=== PATIENT | female | born 1945 | race Caucasian/White ===

== ENCOUNTER → 2017-03-14 | Outpatient (CLI) | payer MEDICARE ==
[~2017-03-14] MED LIST: ASPIRIN 32325 MG/TAB PO; CEPHALEXIN500 M1 PO; COREG 6.256.25 MG/TA PO; FLUOXETINE20 MG PO; FUROSEMIDE20 MG PO; LISINOPRIL; METFORMIN500 MG PO; PRAVASTATIN SOD40 MG PO; PRINZIDE 12.5 M1 TA1 PO; VESICARE5 MG PO; VITAMIN D50000 I1 PO
== END ==
LOC: MC.RAD 11:39
DX: Z12.31 Encounter for screening mammogram for malignant neoplasm of breast (principal)

== ENCOUNTER 2019-01-25 11:42 | Emergency (ER) | payer MEDICARE ==
[~2019-01-25] VITALS: Ht 167.6 cm; Wt 113.6 kg
[2019-01-25 11:52] VITALS: TEMP 97.4
[2019-01-25] MEDS ORDERED: NOVOLOG FLEX100 U/ML SQ (12:09)
[2019-01-25] MEDS ORDERED: COUMADIN 2MG2 MG/TAB PO (12:10)
[2019-01-25 13:00] VITALS: BP 111/68; PULSE 77
== END 2019-01-25 13:02 | disposition home or self-care (01) ==
LOC: COL.ER 11:42
DX: R04.0 Epistaxis (principal); Z79.82 Long term (current) use of aspirin

== ENCOUNTER 2019-09-08 11:09 | Inpatient (IN) | payer MEDICARE ==
[~2019-09-08] VITALS: Ht 167.6 cm; Wt 125.0 kg
[2019-09-08] VITALS (149 sets, daily range): BP systolic 85–137; BP diastolic 30–68; PULSE 69–82; TEMP 97–98.6; O2SAT 90–100
[~2019-09-08 11:09] MED LIST changes: +COUMADIN 2MG2 MG/TAB PO; +NOVOLOG FLEX100 U/ML SQ
[2019-09-08] MEDS ORDERED: ASPIRIN 81M81 MG/TA2 PO (11:54)
[2019-09-08] MEDS ORDERED: JANUVIA50 MG PO (11:57)
[2019-09-08 11:58] LABS: MEAN CELL VOLUME 86 fl (80.0-100.0); MEAN CORPUSCULAR HGB CONC 32 g/dl (33.0-37.0); MEAN PLATELET VOLUME 11.4 fl (7.4-10.4); PLATELET COUNT 280 K/mm3 (130-400); RED BLOOD COUNT 2.52 M/mm3 (4.10-5.30); REDCELL DISTRIBUTION WIDTH-CV 14.8 % (11.5-14.5)
[2019-09-08 12:00] LABS: HEMATOCRIT 21.7 % (37.0-47.0); HEMOGLOBIN 6.9 g/dl (12.5-16.0); MEAN CORPUSCULAR HEMOGLOBIN 27 pg (27.0-31.0)
[2019-09-08 12:46] LABS: INR 12.5 (0.8-3.0); PROTHROMBIN TIME 158.1 SECONDS (9.7-12.8)
[2019-09-08 12:53] LABS: ALBUMIN 3.1 gm/dL (3.5-5.0); BILIRUBIN,TOTAL 0.4 mg/dL (0.0-1.0); CALCIUM 8.3 mg/dL (8.4-10.2); CREATININE, serum 1.33 (0.52-1.25); POTASSIUM 4.8 mmol/L (3.4-5.0); TOTAL PROTEIN 5.6 gm/dL (6.4-8.2)
[2019-09-08 14:06] LABS: BAND 7 % (0-10); LYMPHOCYTE 13 % (20.0-51.0); NEUTROPHILS 77 % (42.0-75.2); NUCLEATED RED BLOOD CELL 1 (0-6); PLATELET ESTIMATE NORMAL (NORMAL)
[2019-09-08 14:26] LABS: INR 1.6 (0.8-3.0); PROTHROMBIN TIME 19.1 SECONDS (9.7-12.8)
--- NOTE | 2019-09-08 14:26 | NUR ---
Pt admitted to ICU bed 3 at this time from ED. Pt arrived via stretcher and was placed on aerographer upon arrival. Vitals stable with Levophed gtt infusing at 0.1 mcg/kg/min. Pt denies pain or any other discomforts. Dr. Cunha notified of Pt admission and will see Pt.
[2019-09-08] MEDS ORDERED: LANTUS100 U/ML SQ (15:03)
--- NOTE | 2019-09-08 17:36 | NUR ---
Admission assessment complete at this time. Plan of care reviewed at bedside with patient et family. Additional time taken to address any other needs or concerns. Vitals stable at this time while on Levophed gtt. Pt denies pain or any other discomforts. Currently finishing the infusion of the second unit of PRBCs and will recheck a H&H one hour after finish. Bed in low position, call light within reach, will continue to monitor.
--- NOTE | 2019-09-08 19:38 | NUR ---
Bedside report given to OSCAR Escudero.
--- NOTE | 2019-09-08 20:00 | NUR ---
Received report from OSCAR Escudero. Care resumed at this time.
[2019-09-08 20:01] LABS: HEMATOCRIT 26.3 % (37.0-47.0); HEMOGLOBIN 8.7 g/dl (12.5-16.0)
[2019-09-09] VITALS (775 sets, daily range): BP systolic 89–152; BP diastolic 34–76; PULSE 66–84; TEMP 97–98.8; O2SAT 92–98
--- NOTE | 2019-09-09 | NUR ---
Patient's lateral RAC peripheral line discontinued due to patient's complaint of tenderness at the site. Levophed was infusing at the time. Levophed was stopped upon patient's complaint and site assessed. Blood return was present and line flushed easily without indication of infiltration. Site was previously bruised from insertion attempt, however, the skin was slightly edematous at the site. Levophed switched to medial RAC peripheral line. Will continue to monitor.
--- NOTE | 2019-09-09 00:10 | NUR ---
Patient continues on Levophed drip to maintain MAP above 65. Shara notified that Levophed was previously ordered to DC after infusing one bag; received order to continue drip.
--- NOTE | 2019-09-09 07:34 | NUR ---
Report given to OSCAR Ramos.
--- NOTE | 2019-09-09 07:34 | NUR ---
Shift assessment complete at this time. Plan of care reviewed at bedside with patient. Additional time taken to address any other needs or concerns. Vitals stable at this time on Levophed gtt. Pt denies pain or any other discomfort at this time. Bed in low et locked position, call light within reach. Will continue to monitor.
[2019-09-09 07:56] LABS: MEAN CELL VOLUME 87 fl (80.0-100.0); MEAN CORPUSCULAR HGB CONC 32 g/dl (33.0-37.0); MEAN PLATELET VOLUME 10.9 fl (7.4-10.4); PLATELET COUNT 279 K/mm3 (130-400); REDCELL DISTRIBUTION WIDTH-CV 15.3 % (11.5-14.5)
[2019-09-09 08:14] LABS: CALCIUM 7.9 mg/dL (8.4-10.2); CREATININE, serum 1.23 (0.52-1.25); POTASSIUM 4.3 mmol/L (3.4-5.0)
[2019-09-09 08:42] LABS: HEMATOCRIT 25.1 % (37.0-47.0); HEMOGLOBIN 8.1 g/dl (12.5-16.0); MEAN CORPUSCULAR HEMOGLOBIN 28 pg (27.0-31.0)
[2019-09-09 11:34] LABS: BAND 5 % (0-10); EOSINOPHIL 3 % (0-4); LYMPHOCYTE 9 % (20.0-51.0); NEUTROPHILS 78 % (42.0-75.2); PLATELET ESTIMATE NORMAL (NORMAL)
--- NOTE | 2019-09-09 12:00 | NUR ---
Shift reassessment complete at this time. No changes from previous assessment noted. Vitals stable at this time while on Levophed gtt. Pt denies pain or any other discomfort. Bed in low position, call light within reach. Will continue to monitor.
--- NOTE | 2019-09-09 13:20 | NUR ---
Plan: To return home with son Gregory Sierra as her care [phone]. Patient also wanted to list daughter in law Rafia Sierra (and son) as her EMr contact . PT does not currently have a DPOA. Patient resides in [place] and lives alone. Assess: SW met with patient with son at her bedside. Patient gave permission to discuss information in front of son. Pt reports that she does not use any DME's at home. Patient reports that her PCP is Dr Lowe,with an appt coming up on 26 September. PAtient reproted that she gets her medications from [facility] with no complications. Patient expressed interest in [facility], and was provided with Medicare sheet. Son asked about medicare coverage benefits for adult diapers. Action: No additional concerns identified. Patient was educated on community resources and supports. Action
[2019-09-09 15:53] LABS: HEMATOCRIT 22.3 % (37.0-47.0); HEMOGLOBIN 7.1 g/dl (12.5-16.0)
--- NOTE | 2019-09-09 19:05 | NUR ---
RECEIVED REPORT FROM OSCAR HERRERA. PT SITTING UP IN BED WATCHING TV. CALL LIGHT WITHIN REACH. DENIES ANY NEEDS. PT ON RA. LEVOPHED AT 0.02MCG/KG/MIN, MAP 63, WILL COTNINUE TO MONITOR. PRBC INFUSING AT 150 ML/HR. VSS.
--- NOTE | 2019-09-09 19:19 | NUR ---
Bedside report given to OSCAR Escudero.
--- NOTE | 2019-09-09 19:21 | NUR ---
Bedside report given to OSCAR Feng.
[2019-09-09 23:09] LABS: HEMATOCRIT 23.3 % (37.0-47.0); HEMOGLOBIN 7.6 g/dl (12.5-16.0)
--- NOTE | 2019-09-09 23:40 | NUR ---
NOTIFIED RAE MORSE ABOUT HGB 7.6 AND LEVOPHED CURRENT RATE, NO NEW ORDERS. WILL CONTINUE LEVOPHED TO KEEP MAP > 65 AND ASSESS FOR POSSIBLE DC. ALL OTHER VSS. PT SLEEPING AT THIS TIME. CALL LIGHT WITHIN REACH.
[2019-09-10] VITALS (293 sets, daily range): BP systolic 11–133; BP diastolic 46–76; PULSE 61–93; TEMP 97.4–98.4; O2SAT 90–99
--- NOTE | 2019-09-10 00:17 | NUR ---
LEVOPHED GTT OFF AT THIS TIME MAP 82.
[2019-09-10 08:22] LABS: MEAN CELL VOLUME 89 fl (80.0-100.0); MEAN CORPUSCULAR HGB CONC 31 g/dl (33.0-37.0); MEAN PLATELET VOLUME 10.8 fl (7.4-10.4); PLATELET COUNT 219 K/mm3 (130-400); RED BLOOD COUNT 3.13 M/mm3 (4.10-5.30); REDCELL DISTRIBUTION WIDTH-CV 15.7 % (11.5-14.5)
[2019-09-10 08:24] LABS: HEMATOCRIT 27.7 % (37.0-47.0); HEMOGLOBIN 8.7 g/dl (12.5-16.0); MEAN CORPUSCULAR HEMOGLOBIN 28 pg (27.0-31.0)
[2019-09-10 08:29] LABS: CALCIUM 8.5 mg/dL (8.4-10.2); CREATININE, serum 1.1 (0.52-1.25); POTASSIUM 4.3 mmol/L (3.4-5.0)
[2019-09-10 10:08] LABS: ANISOCYTOSIS 1+; EOSINOPHIL 1 % (0-4); HYPOCHROMIA 1+; LYMPHOCYTE 14 % (20.0-51.0); METAMYELOCYTE 1 % (0-0); MYELOCYTE 3 % (0-0); NEUTROPHILS 79 % (42.0-75.2); NUCLEATED RED BLOOD CELL 2 (0-6); PLATELET ESTIMATE NORMAL (NORMAL)
--- NOTE | 2019-09-10 11:16 | NUR ---
BARREL AND RECEIVER ALIGNER student attended clinical rounds with the team. The patient is to move up to medical floor this day.
--- NOTE | 2019-09-10 15:00 | NUR ---
PATIENT ARRIVED TO ROOM 348 FROM VIA WHEELCHAIR. PATIENT SETTELED INTO ROOM.
--- NOTE | 2019-09-10 15:30 | NUR ---
SEE PATIENTS SHIFT ASSESSMENT.
--- NOTE | 2019-09-10 19:20 | NUR ---
BEDSIDE SHIFT REPORT GIVEN TO OSCAR DEVLIN.
--- NOTE | 2019-09-10 22:29 | NUR ---
Pt doing very well. Alert and oriented with VSS. PM meds given. Denies needs at this time. Call light within reach, will continue to monitor
[2019-09-11] VITALS: BP 121/58; PULSE 87; TEMP 98.2
--- NOTE | 2019-09-11 03:49 | NUR ---
Pt doing well. Resting in bed. No complaints at this time. Call light within reach, will continue to monitor
[2019-09-11 04:00] VITALS: BP 127/54; PULSE 79; TEMP 98.1
[2019-09-11 07:44] VITALS: BP 119/46; PULSE 74; TEMP 98.2
--- NOTE | 2019-09-11 08:00 | NUR ---
PATIENT IS SITTING UP AT THE EDGE OF THE BED WITH HER BREAKFAST TRAY THIS MORNING. PATIENT IS A&OX4. IRREGULAR HEART RHYTHM WITH REGULAR RATE NOTED, VSS. TELE IN PLACE. PATIENT STATES THAT SHE FEELS SOB, BUT NO MORE THAN HER NORMAL. BOWEL SOUNDS ACTIVE ALL FOUR QUADRANTS. PATIENT TOLERATING DIET WITHOUT ANY COMPLAINTS OF N/V. POSITIVE PEDAL PULSES EQUAL BILATERALLY. 1+ PITTING- EDEMA TO BLE. PATIENT DENIES ANY PAIN THIS MORNING. CALL LIGHT WITHIN REACH. NO OTHER NEEDS AT THIS TIME.
[2019-09-11 08:26] LABS: MEAN CELL VOLUME 90 fl (80.0-100.0); MEAN CORPUSCULAR HGB CONC 31 g/dl (33.0-37.0); MEAN PLATELET VOLUME 10.8 fl (7.4-10.4); PLATELET COUNT 234 K/mm3 (130-400); RED BLOOD COUNT 2.92 M/mm3 (4.10-5.30); REDCELL DISTRIBUTION WIDTH-CV 16.7 % (11.5-14.5)
[2019-09-11 08:31] LABS: CALCIUM 8.1 mg/dL (8.4-10.2); CREATININE, serum 1.19 (0.52-1.25); POTASSIUM 4.7 mmol/L (3.4-5.0)
[2019-09-11 08:33] LABS: HEMATOCRIT 26.4 % (37.0-47.0); HEMOGLOBIN 8.3 g/dl (12.5-16.0); MEAN CORPUSCULAR HEMOGLOBIN 28 pg (27.0-31.0)
[2019-09-11 09:21] LABS: BAND 3 % (0-10); BASOPHIL 1 % (0-2); EOSINOPHIL 5 % (0-4); LYMPHOCYTE 17 % (20.0-51.0); METAMYELOCYTE 2 % (0-0); NEUTROPHILS 68 % (42.0-75.2); PLATELET ESTIMATE NORMAL (NORMAL)
[2019-09-11 11:23] VITALS: BP 110/44; PULSE 65; TEMP 98.7
[2019-09-11 12:38] LABS: HEMATOCRIT 26.5 % (37.0-47.0); HEMOGLOBIN 8.3 g/dl (12.5-16.0)
[2019-09-11] MEDS ORDERED: PROTONIX 40MG T40 MG PO (14:08)
--- NOTE | 2019-09-11 15:10 | NUR ---
The patient is to discharge to her son's (Mg) home today, 09/11. SW presented and explained the IM form to the patient. The patient verbalized understanding, signed, and she was provided a copy. No additional needs at this time.
--- NOTE | 2019-09-11 16:30 | NUR ---
PATIENTS LEFT FOREARM INT DISCONTINUED PER PENDING DISCHARGE. TIP INTACT. PATIENT TOLERATED WELL. DISCHARGE INSTRUCTIONS REVIEWED WITH PATIENT AND FAMILY. ALL PATIENT PERSONAL BELONGINGS GATHERED. PATIENT TAKEN TO PERSONAL VEHICLE VIA WHEELCHAIR BY SURGICAL STAFF. PATIENT DISCHARGED.
== END 2019-09-11 16:30 | disposition home or self-care (01) | DRG 813 ==
LOC: COL.ER 11:09 → ICU 13:11 → SURG 09-10 15:00
PROVIDERS: Emergency Medicine; Physician Assistant; Student in an Organized Health Care Education/Training Program; ADMIT Student in an Organized Health Care Education/Training Program
DX: D68.32 Hemorrhagic disorder due to extrinsic circulating anticoagulants (principal); K57.91 Diverticulosis of intestine, part unspecified, without perforation or abscess with bleeding; R57.1 Hypovolemic shock; N17.9 Acute kidney failure, unspecified; K62.5 Hemorrhage of anus and rectum; I48.91 Unspecified atrial fibrillation; I10 Essential (primary) hypertension; E11.9 Type 2 diabetes mellitus without complications; T45.515A Adverse effect of anticoagulants, initial encounter; D64.9 Anemia, unspecified; Z79.01 Long term (current) use of anticoagulants; Z79.82 Long term (current) use of aspirin; Z79.4 Long term (current) use of insulin; Z87.891 Personal history of nicotine dependence
CPT/HCPCS: 99223-AI; 99233-AI; 99239; C9113; C9132; J1815; J3430; J7030; J7040; J7060; P9016; P9047

== ENCOUNTER 2020-09-22 13:53 | Emergency (ER) | payer MEDICARE ==
[~2020-09-22] VITALS: Ht 167.6 cm; Wt 104.5 kg
[~2020-09-22 13:53] MED LIST changes: +ASPIRIN 81M81 MG/TA2 PO; +JANUVIA50 MG PO; +LANTUS100 U/ML SQ; +PROTONIX 40MG T40 MG PO
[2020-09-22 14:04] VITALS: BP 126/60; TEMP 96.9
[2020-09-22] MEDS ORDERED: LIPITOR 40MG TA40 MG PO (14:50)
[2020-09-22] MEDS ORDERED: ZETIA 10MG TAB10 MG PO (14:52)
[2020-09-22] MEDS ORDERED: NATURAL IRON65 MG (14:53)
[2020-09-22] MEDS ORDERED: INCRUSE EL62.5 MCG/A IH (14:53)
[2020-09-22] MEDS ORDERED: COZAAR 25MG25 MG/TAB PO (14:55)
[2020-09-22] MEDS ORDERED: PRINZIDE 12.5 M1 TA1 PO (14:55)
[2020-09-22] MEDS ORDERED: VENTOLIN0.09 MG IH (14:58)
[2020-09-22] MEDS ORDERED: ALDACTONE 25MG25 M1 PO (14:58)
[2020-09-22] MEDS ORDERED: COUMADIN 2MG2 MG/TAB PO (14:59)
[2020-09-22 15:21] LABS: BASO % 0.5 % (0.0-2.0); EOS # 0.2 (0.0-0.7); EOS % 2.1 % (0-4.0); GRAN % 81.7 % (42.2-75.2); HEMATOCRIT 36.1 % (37.0-47.0); HEMOGLOBIN 10.9 g/dl (12.5-16.0); LYMPH # 0.8 (1.2-3.4); LYMPH % 9.5 % (20.0-51.0); MEAN CELL VOLUME 87 fl (80.0-100.0); MEAN CORPUSCULAR HEMOGLOBIN 26 pg (27.0-31.0); MEAN CORPUSCULAR HGB CONC 30 g/dl (33.0-37.0); MEAN PLATELET VOLUME 10.8 fl (7.4-10.4); MONO # 0.5 (0.1-0.6); MONO % 5.5 % (1.7-9.3); PLATELET COUNT 210 K/mm3 (130-400); RED BLOOD COUNT 4.17 M/mm3 (4.10-5.30); REDCELL DISTRIBUTION WIDTH-CV 15.4 % (11.5-14.5)
[2020-09-22 15:26] LABS: INR 1.4 (0.8-3.0); PROTHROMBIN TIME 15.3 SECONDS (9.7-12.8)
[2020-09-22 15:33] LABS: C-REACTIVE PROTEIN 2.3 mg/dL (0.0-0.9); CALCIUM 8.6 mg/dL (8.4-10.2); CREATININE, serum 1.34 (0.52-1.25); POTASSIUM 4.2 mmol/L (3.4-5.0); TOTAL PROTEIN 7.1 gm/dL (6.4-8.2)
[2020-09-22 17:01] VITALS: PULSE 68
== END 2020-09-22 17:00 | disposition home or self-care (01) ==
LOC: COL.ER 13:53
PROVIDERS: Physician Assistant
DX: R60.0 Localized edema (principal); E11.40 Type 2 diabetes mellitus with diabetic neuropathy, unspecified; E11.22 Type 2 diabetes mellitus with diabetic chronic kidney disease; I12.9 Hypertensive chronic kidney disease with stage 1 through stage 4 chronic kidney disease, or unspecified chronic kidney disease; N18.9 Chronic kidney disease, unspecified; I48.91 Unspecified atrial fibrillation; E66.01 Morbid (severe) obesity due to excess calories; E78.5 Hyperlipidemia, unspecified; J44.9 Chronic obstructive pulmonary disease, unspecified; Z87.891 Personal history of nicotine dependence; Z91.14 Patient's other noncompliance with medication regimen; Z79.4 Long term (current) use of insulin

== ENCOUNTER 2020-11-17 20:42 | Emergency (ER) | payer MEDICARE ==
[~2020-11-17] VITALS: Ht 167.6 cm; Wt 113.6 kg
[~2020-11-17 20:42] MED LIST changes: +ALDACTONE 25MG25 M1 PO; +COZAAR 25MG25 MG/TAB PO; +INCRUSE EL62.5 MCG/A IH; +LIPITOR 40MG TA40 MG PO; +NATURAL IRON65 MG; +VENTOLIN0.09 MG IH; +ZETIA 10MG TAB10 MG PO
[2020-11-17 20:55] VITALS: TEMP 98.9
[2020-11-17] MEDS ORDERED: LIQUIFILM TEARS15 ML OU (22:12)
[2020-11-17] MEDS ORDERED: VALTREX1 GM PO (22:12)
[2020-11-17] MEDS ORDERED: PREDNISONE20 MG PO (22:12)
[2020-11-17 22:20] VITALS: BP 163/72; PULSE 73
== END 2020-11-17 22:20 | disposition home or self-care (01) ==
LOC: COL.ER 20:42
DX: G51.0 Bell's palsy (principal); I10 Essential (primary) hypertension; E11.9 Type 2 diabetes mellitus without complications; J44.9 Chronic obstructive pulmonary disease, unspecified; E78.5 Hyperlipidemia, unspecified; K21.9 Gastro-esophageal reflux disease without esophagitis; Z79.4 Long term (current) use of insulin
CPT/HCPCS: J7512

== ENCOUNTER 2021-09-01 06:04 | Day surgery (SDC) | payer MEDICARE ==
[~2021-09-01] VITALS: Ht 167.6 cm; Wt 125.9 kg
[~2021-09-01 06:04] MED LIST changes: +LIQUIFILM TEARS15 ML OU; +PREDNISONE20 MG PO; +VALTREX1 GM PO
[2021-09-01 06:47] VITALS: BP 108/61; PULSE 82; TEMP 98.1
[2021-09-01] MEDS ORDERED: BYDUREON B2 MG/0.85 SQ (07:04)
[2021-09-01] MEDS ORDERED: ALDACTONE 25MG25 M1 PO (07:05)
[2021-09-01] MEDS ORDERED: NATURAL IRON65 MG PO (07:06)
[2021-09-01] MEDS ORDERED: BASAGLAR K100 UNIT/1 SQ (07:06)
[2021-09-01] MEDS ORDERED: NOVOLOG FLEX100 U/ML SQ (07:07)
[2021-09-01] MEDS ORDERED: D3-5050000 IU PO (07:07)
[2021-09-01] MEDS ORDERED: LIPITOR 40MG TA40 MG PO (07:09)
[2021-09-01] MEDS ORDERED: COREG 25MG25 MG/TAB PO (07:10)
[2021-09-01] MEDS ORDERED: JANUVIA50 MG PO (07:10)
[2021-09-01] MEDS ORDERED: PROTONIX 40MG T40 MG PO ×2 (07:11→09:16)
[2021-09-01] MEDS ORDERED: BREZTRI AEROS10.7 GM IH (07:15)
[2021-09-01 09:00] VITALS: BP 104/66; PULSE 56; TEMP 98.2
--- NOTE | 2021-09-01 09:00 | NUR ---
PATIENT BROUGHT BACK TO [facility] VIA CART. LEFT ON CART D/T DIFFICULTY STANDING. PLACED ON MONITORS, VITAL SIGNS STABLE. IV INFUSING. DAUGHTER IN LAW AT BEDSIDE TO DRIVE PATIENT HOME. REQUESTS ANGELIQUE. ESTEFANY MOORE AT BEDSIDE FOR REPORT. DR. BENITEZ AT BEDSIDE TO EXPLAIN RESULTS TO PATIENT AND FAMILY. CALL LUGO WITHIN REACH. 0915- PATIENT TOLERATED FOOD AND DRINK WITHOUT DIFFICULTY. VITAL SIGNS STABLE. 0930- PATIENT FEELS READY TO GO HOME AT THIS TIME. STABLE. IV REMOVED. INTACT. PATIENT ASSISTED IN GETTING DRESSED. TRANSFERED TO WHEEL CHAIR WITH ONE ASSIST. DISCHARGE INSTRUCTIONS REVIEWED WITH PATIENT AND FAMILY. 0940- BROUGHT DOWN TO LOBBY VIA WHEEL CHAIR. DAUGHTER IN LAW TO DRIVE PATIENT HOME. ASSISTED INTO VEHICLE. ALL BELONGINGS IN HAND.
[2021-09-01 09:15] VITALS: BP 129/60; PULSE 56
[2021-09-01] MEDS ORDERED: CARAFATE 1GM1 G PO (09:16)
[2021-09-01 09:30] VITALS: BP 107/50; PULSE 57
== END 2021-09-01 09:40 | disposition home or self-care (01) ==
LOC: SDCO 06:04
DX: K31.7 Polyp of stomach and duodenum (principal); K25.0 Acute gastric ulcer with hemorrhage; K52.9 Noninfective gastroenteritis and colitis, unspecified; D12.4 Benign neoplasm of descending colon; D12.3 Benign neoplasm of transverse colon; D12.0 Benign neoplasm of cecum; K57.30 Diverticulosis of large intestine without perforation or abscess without bleeding; K92.1 Melena; E11.22 Type 2 diabetes mellitus with diabetic chronic kidney disease; I12.9 Hypertensive chronic kidney disease with stage 1 through stage 4 chronic kidney disease, or unspecified chronic kidney disease; N18.30 Chronic kidney disease, stage 3 unspecified; D63.1 Anemia in chronic kidney disease; E11.40 Type 2 diabetes mellitus with diabetic neuropathy, unspecified; K21.9 Gastro-esophageal reflux disease without esophagitis; J44.9 Chronic obstructive pulmonary disease, unspecified; E55.9 Vitamin D deficiency, unspecified; E78.5 Hyperlipidemia, unspecified; E83.42 Hypomagnesemia; Z79.4 Long term (current) use of insulin; Z79.84 Long term (current) use of oral hypoglycemic drugs; Z79.899 Other long term (current) drug therapy
CPT/HCPCS: J2704

== ENCOUNTER 2021-10-17 00:33 | Inpatient (IN) | payer MEDICARE ==
[~2021-10-17] VITALS: Ht 167.6 cm; Wt 136.2 kg
[2021-10-17] VITALS (11 sets, daily range): BP systolic 87–120; BP diastolic 42–69; PULSE 57–106; TEMP 98–98.6
[~2021-10-17 00:33] MED LIST changes: +BASAGLAR K100 UNIT/1 SQ; +BREZTRI AEROS10.7 GM IH; +BYDUREON B2 MG/0.85 SQ; +CARAFATE 1GM1 G PO; +COREG 25MG25 MG/TAB PO; +D3-5050000 IU PO; +NATURAL IRON65 MG PO
[2021-10-17 01:00] LABS: BASO % 0.4 % (0.0-2.0); EOS # 0.1 K/mm3 (0.0-0.7); EOS % 0.9 % (0.0-4.0); GRAN # 8.3 K/mm3 (1.4-6.5); GRAN % 84.9 % (42.2-75.2); LYMPH # 0.8 K/mm3 (1.2-3.4); LYMPH % 8.1 % (20.0-51.0); MEAN CELL VOLUME 75 fl (80.0-100.0); MEAN CORPUSCULAR HGB CONC 31 g/dl (33.0-37.0); MEAN PLATELET VOLUME 9.8 fl (7.4-10.4); MONO # 0.5 K/mm3 (0.1-0.6); MONO % 5.2 % (1.7-9.3); PLATELET COUNT 266 K/mm3 (130-400); RED BLOOD COUNT 3.26 M/mm3 (4.10-5.30); REDCELL DISTRIBUTION WIDTH-CV 19.8 % (11.5-14.5)
[2021-10-17 01:17] LABS: ALANINE AMINOTRANSFERASE 9 U/L (0-55); ALBUMIN 3.1 gm/dL (3.4-4.8); ALCOHOL(ethanol),MEDICAL < 10 mg/dL (0-10); ANION GAP 12 mmol/L (7-16); AST,SGOT 22 U/L (5-34); BILIRUBIN,TOTAL 1.6 mg/dL (0.2-1.2); BLOOD UREA NITROGEN 18 mg/dL (10-20); CALCIUM 8.3 mg/dL (8.4-10.2); CARBON DIOXIDE 20 mmol/L (23-31); CHLORIDE 101 mmol/L (98-107); CREATININE, serum 1.29 mg/dL (0.57-1.11); GLUCOSE 113 mg/dL (70-99); POTASSIUM 4.5 mmol/L (3.5-4.5); SODIUM 133 mmol/L (136-145); TOTAL PROTEIN 6.4 gm/dL (6.2-8.1)
[2021-10-17 01:23] LABS: TROPONIN-I 0.022 ng/mL (0.00-0.033)
[2021-10-17 01:29] LABS: ALKALINE PHOSPHATASE 112 U/L (40-150)
[2021-10-17 01:30] LABS: HEMATOCRIT 24.3 % (37.0-47.0); HEMOGLOBIN 7.4 g/dl (12.5-16.0); MEAN CORPUSCULAR HEMOGLOBIN 23 pg (27-31)
--- NOTE | 2021-10-17 06:54 | NUR ---
PT ARRIVED TO FLOOR APPROXIMATELY 0500 VIA ER BED. PT WAS ABLE TO STAND AND TRANSFER TO ROOM BED. PT IS UNSTEADY ON FEET, USES WALKER TO TRANSFER.SCANT AMOUNT OF BRIGHT RED BLOOD WAS NOTED ON BRIEF. PT DENIES ANY ABDOMINAL PAIN, STATES SHE GOT TOLD IT WAS AN ULCER THAT WAS BLEEDING. PT IS PLEASANT AND COOPERATIVE. PT TOLD TO USE CALL LIGHT FOR SBA WITH WALKER TO TRANSFER DUE TO UNABLE TO ASSESS GAIT. CALL LIGHT IN REACH.
[2021-10-17 08:00] LABS: BASO % 0.3 % (0.0-2.0); EOS # 0.1 K/mm3 (0.0-0.7); EOS % 1.4 % (0.0-4.0); GRAN # 7.7 K/mm3 (1.4-6.5); GRAN % 80.2 % (42.2-75.2); LYMPH % 10.5 % (20.0-51.0); MEAN CELL VOLUME 76 fl (80.0-100.0); MEAN CORPUSCULAR HGB CONC 30 g/dl (33.0-37.0); MEAN PLATELET VOLUME 10.3 fl (7.4-10.4); MONO # 0.7 K/mm3 (0.1-0.6); MONO % 7.2 % (1.7-9.3); PLATELET COUNT 279 K/mm3 (130-400); RED BLOOD COUNT 3.17 M/mm3 (4.10-5.30); REDCELL DISTRIBUTION WIDTH-CV 19.9 % (11.5-14.5)
[2021-10-17 08:02] LABS: HEMATOCRIT 24.2 % (37.0-47.0); HEMOGLOBIN 7.2 g/dl (12.5-16.0); MEAN CORPUSCULAR HEMOGLOBIN 23 pg (27-31)
[2021-10-17 08:19] LABS: CALCIUM 8.4 mg/dL (8.4-10.2); CREATININE, serum 1.25 mg/dL (0.57-1.11); POTASSIUM 4.4 mmol/L (3.5-4.5)
[2021-10-17 15:14] LABS: HEMATOCRIT 24.1 % (37.0-47.0); HEMOGLOBIN 6.8 g/dl (12.5-16.0)
--- NOTE | 2021-10-17 19:06 | NUR ---
PT BLOOD ADMINISTRATION AT 1840, PT UNDERSTANDS S/S TO REPORT. SOFT BP'S NOTED. VITALS ON INTERVAL. PT DENIES SOA,N,V,D, FLANK PAIN.
--- NOTE | 2021-10-17 19:09 | NUR ---
BEDSIDE SHIFT REPORT GIVEN AT BEDSIDE. BLOOD CURRENTLY INFUSING. FIRST 15 MINUTES.
--- NOTE | 2021-10-17 20:12 | NUR ---
PT TRANSFUSION COMPLETE W/O S/S,INJURY,SOA.
--- NOTE | 2021-10-17 20:32 | NUR ---
BLOOD TRANFUSING AT 150CC/HR TO NEW IV ON LEFT HAND OLD IV BEGAN TO LEAK.
--- NOTE | 2021-10-17 23:15 | NUR ---
PT IS PLEASANT AND COOPERATIVE. BLOOD INFUSED. NO ADVERSE REACTIONS NOTED. HGB CHECK WILL BE 2330. FLUIDS RUNNING AT 50 ML/HR. PT DENIES PAIN. NO OTHER NEEDS
[2021-10-17 23:41] LABS: HEMATOCRIT 24.5 % (37.0-47.0); HEMOGLOBIN 7.4 g/dl (12.5-16.0)
[2021-10-18] VITALS (8 sets, daily range): BP systolic 95–110; BP diastolic 40–57; PULSE 57–75; TEMP 97.6–98.4
--- NOTE | 2021-10-18 03:17 | NUR ---
THIS RN CALLED GRUPO CASILLAS ABOUT SOFT BP ON PATIENT, SONJA STATED SHE IS NOT TOO WORRIED ABOUT THEM. IF SBP GETS TO LOW 80'S THEN TO NOTIFY AGAIN.
--- NOTE | 2021-10-18 06:24 | NUR ---
PT HAD AN OK NIGHT. PT RECEIVED 1 UNIT OF BLOOD. HGB AT CHECK WAS 7.4. PT DENIES ANY PAIN. BGS CHECK THIS AM WAS 36. JUICE AND CRACKERS GIVEN. WILL RECHECK SUGARS APPROXIMATELY 0630. NO OTHER NEEDS AT THIS TIME.
[2021-10-18 07:05] LABS: BASO % 0.6 % (0.0-2.0); EOS # 0.2 K/mm3 (0.0-0.7); EOS % 2.9 % (0.0-4.0); GRAN # 4.6 K/mm3 (1.4-6.5); GRAN % 70.9 % (42.2-75.2); LYMPH # 1.1 K/mm3 (1.2-3.4); LYMPH % 16.6 % (20.0-51.0); MEAN CELL VOLUME 77 fl (80.0-100.0); MEAN CORPUSCULAR HGB CONC 30 g/dl (33.0-37.0); MEAN PLATELET VOLUME 10.3 fl (7.4-10.4); MONO # 0.6 K/mm3 (0.1-0.6); MONO % 8.7 % (1.7-9.3); PLATELET COUNT 233 K/mm3 (130-400); RED BLOOD COUNT 3.32 M/mm3 (4.10-5.30)
[2021-10-18 07:10] LABS: HEMATOCRIT 25.4 % (37.0-47.0); HEMOGLOBIN 7.6 g/dl (12.5-16.0); MEAN CORPUSCULAR HEMOGLOBIN 23 pg (27-31)
[2021-10-18 07:29] LABS: ALBUMIN 3.2 gm/dL (3.4-4.8); CALCIUM 8.4 mg/dL (8.4-10.2); CREATININE, serum 1.35 mg/dL (0.57-1.11); MAGNESIUM 1.7 mg/dL (1.6-2.6); PHOSPHOROUS 3.3 mg/dL (2.3-4.7); POTASSIUM 3.8 mmol/L (3.5-4.5)
--- NOTE | 2021-10-18 07:43 | NUR ---
DR. FORTE NOTIFIED OF PT CRITICAL LAB GLUCOSE OF 33, SINCE RESOLVED, RECHECKED AT 0730, BLOOD GLUCOSE IS 97. NOTIFIED OF NEEDING PARAMETERS FOR COREG, LOW BLOOD PRESSURE. RECEIVED ORDERS FOR HOLD PARAMETERS OF SBP <100.
--- NOTE | 2021-10-18 08:00 | NUR ---
PT ALERT AND ORIENTED. PT LUNGS CLEAR ON LEFT ALL LOBES, RIGHT UPPER LOBE EXPIRATORY WHEEZE NOTED. MILD EXCORIATION NOTED IN SKIN FOLDS, INTERDRY IN PLACE. PT HAS DISCOLORED ANKLES, LEATHERY SKIN IN APPEARANCE. PT CALL LIGHT WIHTIN REACH. REPOSITIONED.
--- NOTE | 2021-10-18 09:30 | NUR ---
PT SON CALLED EXPRESSING CONCERNS WITH PT DISCHARGE PLANNING. NOTIFIED DR. FORTE FOR FURTHER UPDATES TO BE GIVEN FOR SON.
[2021-10-18 14:32] LABS: HEMATOCRIT 24.6 % (37.0-47.0); HEMOGLOBIN 7.4 g/dl (12.5-16.0)
--- NOTE | 2021-10-18 15:15 | NUR ---
Tyson met with the pt who stated her preference to return home once medically stable. The pt lives at home in a mobile home. The pt report her NK is her son, Paolo [phone]. The pt reports she is independent on all ADLS and uses a walker & glucemeter. The pt reports he PCP is Wali Mahan and gets her medicatins from [facility]. The pt reports her DPOA_ HC is her son, Paolo. The pt would like services. Tyson faxed over referral to [facility]: Home w/ HH
--- NOTE | 2021-10-18 19:05 | NUR ---
Pt continues on plan of care. Pt received bolus of fluids to increase blood pressure, mild response noted, Dr. Little notified of blood pressure after bolus. Pt able to call for needs. Pt received medications per orders.
[2021-10-18 23:20] LABS: HEMATOCRIT 24.6 % (37.0-47.0); HEMOGLOBIN 7.6 g/dl (12.5-16.0)
--- NOTE | 2021-10-19 00:17 | NUR ---
AT 2300 PT HAD TWO LOOSE BLOODY STOOLS. HGB STEADY AT 7.6. PT DENIES SOA, PAIN.
[2021-10-19 03:37] VITALS: BP 112/47; PULSE 60; TEMP 97.8
--- NOTE | 2021-10-19 06:15 | NUR ---
NO CLINICAL CHANGES OVERNIGHT. ALL NEEDS MET. NEW PUREWICK PLACED. PT CLEANED AND DRIED WITH THE ASSITANCE OF TWO STAFF MEMBERS.
[2021-10-19 06:37] LABS: BASO # 0.1 K/mm3 (0.0-0.2); BASO % 0.8 % (0.0-2.0); EOS # 0.2 K/mm3 (0.0-0.7); EOS % 3.6 % (0.0-4.0); GRAN # 4.7 K/mm3 (1.4-6.5); GRAN % 71.1 % (42.2-75.2); LYMPH # 1.1 K/mm3 (1.2-3.4); LYMPH % 16.2 % (20.0-51.0); MEAN CELL VOLUME 79 fl (80.0-100.0); MEAN CORPUSCULAR HGB CONC 29 g/dl (33.0-37.0); MEAN PLATELET VOLUME 10.4 fl (7.4-10.4); MONO # 0.5 K/mm3 (0.1-0.6); MONO % 7.7 % (1.7-9.3); PLATELET COUNT 204 K/mm3 (130-400); RED BLOOD COUNT 3.24 M/mm3 (4.10-5.30); REDCELL DISTRIBUTION WIDTH-CV 19.4 % (11.5-14.5)
[2021-10-19 06:54] LABS: HEMATOCRIT 25.5 % (37.0-47.0); HEMOGLOBIN 7.4 g/dl (12.5-16.0); MEAN CORPUSCULAR HEMOGLOBIN 23 pg (27-31)
[2021-10-19 06:58] LABS: ALBUMIN 3.2 gm/dL (3.4-4.8); CALCIUM 8.5 mg/dL (8.4-10.2); CREATININE, serum 1.46 mg/dL (0.57-1.11); MAGNESIUM 1.8 mg/dL (1.6-2.6); PHOSPHOROUS 3.3 mg/dL (2.3-4.7); POTASSIUM 4.3 mmol/L (3.5-4.5)
[2021-10-19 07:38] VITALS: BP 106/41; PULSE 62; TEMP 97.8
--- NOTE | 2021-10-19 08:00 | NUR ---
PT ALERT AND ORIENTED. PT AMBULATED TO RESTROOM WITH PHYSICAL THERAPY, THIS RN PRESENT, NOTED LILI BLOODY STOOL AND CONTINUED BLEEDING WITH CLEANING WIPES. DR. TRAN NOTIFIED. PT LUNGS CLEAR TO AUSCULTATION. S1,S2 SOUNDS AUSCULTATED. PT ABLE TO CONVERSE FREELY, DENIES PAIN. PT REPORTS BLOOD STOOLS OCCURRED LAST NIGHT FROM "PUSHING IT OUT." PT AMBULATE BACK TO BED, CALL LIGHT WITHIN REACH.
[2021-10-19 08:28] VITALS: BP 106/42
--- NOTE | 2021-10-19 09:46 | NUR ---
NOTIFIED DR. TRAN OF PT NEW ONSET OF LILI RED BLOOD FROM RECTUM.
[2021-10-19 12:17] VITALS: BP 106/42; PULSE 58; TEMP 98
--- NOTE | 2021-10-19 15:05 | NUR ---
First visit from the wood buffer. No needs right now.
[2021-10-19 16:03] VITALS: BP 111/47; PULSE 55; TEMP 97.4
--- NOTE | 2021-10-19 16:38 | NUR ---
Field Crop Ii Farmworker collaborated with OT who advised that patient's daughter in law was at bedside and reported that patient has not been functioning well at home and does not get around well. SW followed up with patient who advised she is going to talk about the discharge plan with her son later on tonight, but is open to rehab referrals being sent. Patient would like referrals sent to all three local facilities. ELLIOT faxed referrals to [facility], [facility], and [facility]. ELLIOT also faxed clinicals to [facility] as patient's insurance plan requires prior authorization. Discharge Plan: Pending referrals at [facility], [facility], and [facility].
--- NOTE | 2021-10-19 17:18 | NUR ---
PT HAD NEW ONSET OF LILI RED BLOOD OVERNIGHT, CONTINUED THIS SHIFT. PT WORKED WITH THERAPY SERVICES THIS SHIFT. PT ABLE TO CALL FOR NEEDS. SCHEDULED FOR PROCEDURE TOMORROW. WILL REPORT TO YARN SPINNER.
[2021-10-19 21:08] VITALS: BP 106/46; PULSE 56; TEMP 97.8
--- NOTE | 2021-10-19 23:46 | NUR ---
PT IS DRINKING GO LIGHTLY, ASSESSMENT COMPLETED. PT HAD 2 BOWEL MOVEMENTS, BOTH TIMES WHEN THIS RN AND AIDE CLEANED PATIENT UP, BRIGHT RED BLOOD WAS NOTED TO BE FLOWING CONSTANTLY. DENIES PAIN, LIGHTHEADNESSES. WILL CONTINUE TO MONITOR.
--- NOTE | 2021-10-19 23:53 | NUR ---
THIS RN NOTIFIED SONJA LOMBARDO ABOUT BRIGHT RED BLOOD JUST CONTINOUSLY RUNNING FROM PATIENT RECTUM. SONJA PLACED ORDER FOR H&H CHECK.
[2021-10-20] VITALS (9 sets, daily range): BP systolic 100–122; BP diastolic 41–57; PULSE 55–65; TEMP 97.4–98.3
[2021-10-20 00:43] LABS: HEMOGLOBIN 7.9 g/dl (12.5-16.0)
[2021-10-20 06:43] LABS: BASO # 0.1 K/mm3 (0.0-0.2); BASO % 0.7 % (0.0-2.0); EOS # 0.3 K/mm3 (0.0-0.7); EOS % 4.5 % (0.0-4.0); GRAN # 5.2 K/mm3 (1.4-6.5); GRAN % 73.2 % (42.2-75.2); LYMPH % 13.7 % (20.0-51.0); MEAN CELL VOLUME 80 fl (80.0-100.0); MEAN CORPUSCULAR HGB CONC 29 g/dl (33.0-37.0); MEAN PLATELET VOLUME 10.1 fl (7.4-10.4); MONO # 0.5 K/mm3 (0.1-0.6); MONO % 7.2 % (1.7-9.3); PLATELET COUNT 196 K/mm3 (130-400); REDCELL DISTRIBUTION WIDTH-CV 19.7 % (11.5-14.5)
[2021-10-20 06:48] LABS: HEMATOCRIT 26.5 % (37.0-47.0); HEMOGLOBIN 7.7 g/dl (12.5-16.0); MEAN CORPUSCULAR HEMOGLOBIN 23 pg (27-31)
[2021-10-20 06:53] LABS: ALBUMIN 3.3 gm/dL (3.4-4.8); CALCIUM 8.5 mg/dL (8.4-10.2); CREATININE, serum 1.38 mg/dL (0.57-1.11); POTASSIUM 4.3 mmol/L (3.5-4.5)
[2021-10-20 07:29] LABS: MAGNESIUM 1.8 mg/dL (1.6-2.6); PHOSPHOROUS 3.3 mg/dL (2.3-4.7)
--- NOTE | 2021-10-20 09:47 | NUR ---
Assessment completed, alert/oriented, vital signs stable, denies any pain or discomfort, abd is round/soft and non-tender, bowel prep tolearted well/ output is clear but bloody, hemaglobin remains relatively stable at 7.7, heart RRR/ PAC, distal pulses are palpable, BLE edema 2-3+ with some discolortion noted from chronic vascular impairment, lungs CTA/ diminished, no resp.difficulty noted, purewick female ext. catheter in place, she is NPO and consent signed for EGD/COlon this afternoon, she denies other needs at this time
--- NOTE | 2021-10-20 10:39 | NUR ---
sheet ironworker notified by Maximus at [facility] who states that she accepts the patient. Clinical updates faxed to [facility] and patient notified. Patient notified of acceptance. Patient's son and daughter in law both notified of the patient acceptance. Son states that he feels like the patient will need AL post SNF. Patient's son and daughter in law on their way to [facility] currently to speak with the [facility] Aging to talk with them about getting a EDIL application going. Patient's son educated on what a SNF would be like. Both him and his are in agreement on the patient starting at [facility] SNF before a transition.
--- NOTE | 2021-10-20 13:00 | NUR ---
Patient is going to [facility] for her EGD/COlonoscopy at this time
--- NOTE | 2021-10-20 14:45 | NUR ---
Patient came back to room 311 from [facility] about this time, she is alert/oriented, vital signs stable, denies pain, consult in for and I have called and notified him
[2021-10-20 17:40] LABS: HEMATOCRIT 26.5 % (37.0-47.0); HEMOGLOBIN 7.7 g/dl (12.5-16.0)
--- NOTE | 2021-10-21 02:17 | NUR ---
PT IS PLEASANT, ALERT AND ORIENTATED. PT STATES MAIN GOAL FOR TONIGHT IS TO SLEEP DUE TO LACK OF SLEEP NIGHT BEFORE. ASSESSMENT COMPLETED. LINENS CHANGED, PUREWICK IN PLACE. PT WILL BE NPO AT MIDNIGHT. PT DENIES PAIN, HAS NO COMPLAINTS.
[2021-10-21 05:55] VITALS: BP 122/52; PULSE 82; TEMP 97.8
--- NOTE | 2021-10-21 06:20 | NUR ---
PT HAD A MOSTLY UNEVENTFUL NIGHT. PT SLEPT MOST OF NIGHT. FOR 0400 VITALS, AIDE STATED THAT PATIENT O2 SATS WERE STAYING IN THE 85% RANGE. PLACED ON 2L NC. WILL TITRATE DOWN AND MONITOR TO SEE IF PT WAS LOW DUE TO SLEEPING. HAD BEEN SATTING FINE HIGH FOR REST OF VITALS DURING NIGHT. CALL LIGHT IN REACH. NO OTHER NEEDS.
[2021-10-21 06:28] LABS: BASO % 0.4 % (0.0-2.0); EOS # 0.2 K/mm3 (0.0-0.7); EOS % 3.4 % (0.0-4.0); GRAN # 5.6 K/mm3 (1.4-6.5); GRAN % 78.9 % (42.2-75.2); LYMPH # 0.7 K/mm3 (1.2-3.4); LYMPH % 10.2 % (20.0-51.0); MEAN CELL VOLUME 79 fl (80.0-100.0); MEAN CORPUSCULAR HGB CONC 29 g/dl (33.0-37.0); MEAN PLATELET VOLUME 9.8 fl (7.4-10.4); MONO # 0.5 K/mm3 (0.1-0.6); MONO % 6.3 % (1.7-9.3); PLATELET COUNT 206 K/mm3 (130-400); RED BLOOD COUNT 3.37 M/mm3 (4.10-5.30); REDCELL DISTRIBUTION WIDTH-CV 20.2 % (11.5-14.5)
--- NOTE | 2021-10-21 06:28 | NUR ---
THIS RN TITRATED PT DOWN TO 0.5 L NC DUE TO PT HAVING COPD AND OXYGEN SATS WERE UP TO 98%. PT SATTING AT 92% ON 0.5L
[2021-10-21 06:31] LABS: HEMATOCRIT 26.6 % (37.0-47.0); HEMOGLOBIN 7.8 g/dl (12.5-16.0); MEAN CORPUSCULAR HEMOGLOBIN 23 pg (27-31)
[2021-10-21 06:48] LABS: ALBUMIN 3.2 gm/dL (3.4-4.8); CALCIUM 8.5 mg/dL (8.4-10.2); CREATININE, serum 1.36 mg/dL (0.57-1.11); MAGNESIUM 1.8 mg/dL (1.6-2.6); PHOSPHOROUS 3.4 mg/dL (2.3-4.7); POTASSIUM 4.3 mmol/L (3.5-4.5)
[2021-10-21 08:20] VITALS: BP 115/50; PULSE 73; TEMP 97.9
--- NOTE | 2021-10-21 09:02 | NUR ---
Assessment completed, alert/oriented, vital signs stable, denies pain or discomfort, hemaglobin 7.8 this morning, scheduled for OR this afternoon for intervention of bleeding internal hemrroids, she is NPO and consent signed, Hospitalist in seeing patient now and plans to continue to monitor blood counts for another 24hr, patient denies other needs at this time, will continue to monitor
[2021-10-21 09:31] LABS: INR 1.7 (0.8-3.0)
[2021-10-21 11:41] VITALS: BP 98/48; PULSE 68; TEMP 98.4
--- NOTE | 2021-10-21 14:50 | NUR ---
Patient arrived back to room 311 from OR at this time, she is alert/oriented, vital signs stable, she had a hemrroiectomy and report given to me at bedside, mesh panties wiht "fluff ball" dressing by rectum, she denies needs , will continue to monitor
[2021-10-21 16:21] VITALS: BP 106/70; PULSE 71; TEMP 97.7
[2021-10-21 20:11] VITALS: BP 123/56; PULSE 78; TEMP 97.6
--- NOTE | 2021-10-21 20:15 | NUR ---
O2 SAT 84% ON RA. ADDED 2L NC. O2 SAT UP TO 97% NOW.
--- NOTE | 2021-10-21 20:18 | NUR ---
PT RESTING IN BED . FORGETFUL AT TIMES. NO DISTRESS.
[2021-10-22 00:06] VITALS: BP 151/67; PULSE 69; TEMP 97.7
[2021-10-22 04:16] VITALS: BP 147/46; PULSE 63; TEMP 97.6
[2021-10-22 06:12] LABS: BASO % 0.4 % (0.0-2.0); EOS # 0.2 K/mm3 (0.0-0.7); EOS % 3.3 % (0.0-4.0); GRAN # 5.3 K/mm3 (1.4-6.5); GRAN % 77.8 % (42.2-75.2); LYMPH # 0.8 K/mm3 (1.2-3.4); LYMPH % 11.4 % (20.0-51.0); MEAN CELL VOLUME 81 fl (80.0-100.0); MEAN CORPUSCULAR HGB CONC 29 g/dl (33.0-37.0); MEAN PLATELET VOLUME 10.6 fl (7.4-10.4); MONO # 0.5 K/mm3 (0.1-0.6); MONO % 6.7 % (1.7-9.3); PLATELET COUNT 183 K/mm3 (130-400); RED BLOOD COUNT 3.22 M/mm3 (4.10-5.30); REDCELL DISTRIBUTION WIDTH-CV 20.6 % (11.5-14.5)
[2021-10-22 06:35] LABS: ALBUMIN 3.1 gm/dL (3.4-4.8); CALCIUM 8.4 mg/dL (8.4-10.2); CREATININE, serum 1.39 mg/dL (0.57-1.11); MAGNESIUM 1.6 mg/dL (1.6-2.6); PHOSPHOROUS 3.6 mg/dL (2.3-4.7); POTASSIUM 4.3 mmol/L (3.5-4.5)
[2021-10-22 07:13] LABS: HEMATOCRIT 26.2 % (37.0-47.0); MEAN CORPUSCULAR HEMOGLOBIN 24 pg (27-31)
[2021-10-22 07:31] LABS: HEMOGLOBIN 7.6 g/dl (12.5-16.0)
[2021-10-22 07:44] VITALS: BP 94/36; PULSE 65; TEMP 98.1
[2021-10-22 09:45] VITALS: BP 100/39; BP 1000/39; PULSE 80; TEMP 98.1
--- NOTE | 2021-10-22 10:58 | NUR ---
Patient lying in bed watching tv upon entry to room. Scheduled medications given. Shift assessment performed. Patient denies any pain, discomfort, SOA, or further needs at this time. Bruising noted. VSS. Patient A&O. Patient was found to be 87% on RA after exertion. Recovered to 92% after a 5 min period. GRUPO Ochoa notified. Exercise ox ordered. Covid swab collected.
[2021-10-22 11:14] VITALS: BP 108/44; PULSE 88; TEMP 98.3
--- NOTE | 2021-10-22 12:28 | NUR ---
ELLIOT notified Maximus of discharge. Discharge orders, clinical updates and covid results faxed to Maximus. [facility] agree's to acceptance today and has arranged for a 1130 transportation time. Patient's RN notified. Phone call made to the patient's son who states he is going to run by his mother's house to grab a few things and head up to the hospital. Informed him that she maybe gone by the time he get's here to which he is fine with. Phone call made to the patient's health insurance plan who states no prior authorization is needed to the patient to transfer to SNF. Ref# [id number]. Maximus with [facility] notified. Discharge plan: [facility] SNf @ 1130
--- NOTE | 2021-10-22 12:48 | NUR ---
Patient deemed fit for discharge. Currently requiring 3L of O2 via nasal cannula. VSS. Patient A&O. Denies any pain, discomfort, SOA, or further needs at this time. Report called to Nay. IV DC'd, catheter intact, no signs of phlebitis. Patient transported from [facility] by [facility] staff.
== END 2021-10-22 11:45 | DRG 347 ==
LOC: COL.ER 00:33 → MEDICAL 01:57
PROVIDERS: Internal Medicine Gastroenterology; Physician Assistant; Student in an Organized Health Care Education/Training Program; Surgery; ADMIT Internal Medicine
PROC: 0DJD8ZZ Inspection of Lower Intestinal Tract, Via Natural or Artificial Opening Endoscopic (ICD-10-PCS; 2021-10-20)
PROC: 0DJ08ZZ Inspection of Upper Intestinal Tract, Via Natural or Artificial Opening Endoscopic (ICD-10-PCS; 2021-10-20 13:30)
PROC: 06BY3ZC Excision of Hemorrhoidal Plexus, Percutaneous Approach (ICD-10-PCS; principal; 2021-10-21 13:00)
DX: K64.2 Third degree hemorrhoids (principal); J96.91 Respiratory failure, unspecified with hypoxia; J90 Pleural effusion, not elsewhere classified; N17.9 Acute kidney failure, unspecified; D62 Acute posthemorrhagic anemia; Z68.42 Body mass index [BMI] 45.0-49.9, adult; J44.9 Chronic obstructive pulmonary disease, unspecified; E66.9 Obesity, unspecified; I48.91 Unspecified atrial fibrillation; E78.5 Hyperlipidemia, unspecified; E11.42 Type 2 diabetes mellitus with diabetic polyneuropathy; E11.649 Type 2 diabetes mellitus with hypoglycemia without coma; K21.9 Gastro-esophageal reflux disease without esophagitis; N18.9 Chronic kidney disease, unspecified; E11.22 Type 2 diabetes mellitus with diabetic chronic kidney disease; I12.9 Hypertensive chronic kidney disease with stage 1 through stage 4 chronic kidney disease, or unspecified chronic kidney disease; D50.9 Iron deficiency anemia, unspecified; K31.9 Disease of stomach and duodenum, unspecified; D12.0 Benign neoplasm of cecum; K57.30 Diverticulosis of large intestine without perforation or abscess without bleeding; Z79.4 Long term (current) use of insulin; Z79.01 Long term (current) use of anticoagulants; Z23 Encounter for immunization; Z20.822 Contact with and (suspected) exposure to COVID-19
CPT/HCPCS: 99232-AI; 99233-AI; 99239; C9113; J0690; J1756; J1815; J2405; J2704; J3010; J7030; J7040; P9016; Q9967

== ENCOUNTER 2021-11-14 08:44 | Inpatient (IN) | payer MEDICARE ==
[~2021-11-14] VITALS: Ht 167.6 cm; Wt 145.8 kg
[2021-11-14 09:14] LABS: BASO # 0.1 K/mm3 (0.0-0.2); BASO % 0.7 % (0.0-2.0); EOS # 0.1 K/mm3 (0.0-0.7); EOS % 1.7 % (0.0-4.0); GRAN # 5.6 K/mm3 (1.4-6.5); GRAN % 80.4 % (42.2-75.2); LYMPH # 0.7 K/mm3 (1.2-3.4); LYMPH % 10.7 % (20.0-51.0); MEAN CELL VOLUME 87 fl (80.0-100.0); MEAN CORPUSCULAR HGB CONC 28 g/dl (33.0-37.0); MEAN PLATELET VOLUME 10.9 fl (7.4-10.4); MONO # 0.4 K/mm3 (0.1-0.6); MONO % 5.9 % (1.7-9.3); PLATELET COUNT 202 K/mm3 (130-400); RED BLOOD COUNT 3.53 M/mm3 (4.10-5.30); REDCELL DISTRIBUTION WIDTH-CV 23.2 % (11.5-14.5)
[2021-11-14] MEDS ORDERED: PROAIR HFA0.09 MG/AC IH (09:22)
[2021-11-14] MEDS ORDERED: ORAL PAIN REL9.35 GM MM (09:23)
[2021-11-14 09:26] LABS: ALBUMIN 3.1 gm/dL (3.4-4.8); BILIRUBIN,TOTAL 0.9 mg/dL (0.2-1.2); CALCIUM 8.6 mg/dL (8.4-10.2); CREATININE, serum 1.33 mg/dL (0.57-1.11); POTASSIUM 4.1 mmol/L (3.5-4.5); TOTAL PROTEIN 6.6 gm/dL (6.2-8.1)
[2021-11-14] MEDS ORDERED: BYDUREON B2 MG/0.85 (09:26)
[2021-11-14 09:28] LABS: HEMATOCRIT 30.8 % (37.0-47.0); HEMOGLOBIN 8.6 g/dl (12.5-16.0); MEAN CORPUSCULAR HEMOGLOBIN 24 pg (27-31)
[2021-11-14] MEDS ORDERED: DEBROX OT (09:28)
[2021-11-14] MEDS ORDERED: IMODIUM 2MG CAPS2 MG PO (09:29)
[2021-11-14] MEDS ORDERED: ALDACTONE 25MG25 M1 PO (09:32)
[2021-11-14 09:35] LABS: TROPONIN-I 0.037 ng/mL (0.00-0.033)
[2021-11-14 13:15] VITALS: BP 113/65; PULSE 58; TEMP 97.6
[2021-11-14 15:24] VITALS: BP 98/42; PULSE 57; TEMP 97.5
[2021-11-14] MEDS ORDERED: JANUVIA50 MG PO (15:38)
[2021-11-14] MEDS ORDERED: NYSTATIN POWDER15 GM TOP (15:41)
--- NOTE | 2021-11-14 20:00 | NUR ---
Bedside shift report received, assumed care for maintenance mechanic 2nd shift. Assessment complete. A&Ox4. Denies pain/nausea/shortness of breath. VS stable. O2@2L/NC. Purewick in place. Tele reporting SR. Right wrist INT flushes without difficulty. Plan of care discussed for this shift to include meds/O2/breathing tx/calling for questions/concerns. Verbalizes understanding/denies needs. Call light in reach. Will monitor.
[2021-11-14 20:15] VITALS: BP 109/34; PULSE 557; TEMP 97.3
[2021-11-14 20:35] VITALS: BP 112/56
[2021-11-15] VITALS (7 sets, daily range): BP systolic 100–118; BP diastolic 37–50; PULSE 57–63; TEMP 97.4–98.8
--- NOTE | 2021-11-15 01:30 | NUR ---
Resting eyes closed. No s/s of pain/discomfort noted.
--- NOTE | 2021-11-15 05:28 | NUR ---
RT notified of need for EKG. technical delivery manager called stating he would like one done to verify P waves.
--- NOTE | 2021-11-15 06:40 | NUR ---
Patient had an uneventful night. HS dose of insulin was held due to blood sugar in the 80s. Adequate output. Denied pain/nausea. Short of breath with activity. O2@3L/NC. Denies current needs. Call light in reach. Will monitor.
[2021-11-15 06:42] LABS: BASO # 0.1 K/mm3 (0.0-0.2); BASO % 0.8 % (0.0-2.0); EOS # 0.1 K/mm3 (0.0-0.7); EOS % 1.7 % (0.0-4.0); GRAN # 4.6 K/mm3 (1.4-6.5); GRAN % 77.2 % (42.2-75.2); LYMPH # 0.8 K/mm3 (1.2-3.4); LYMPH % 12.7 % (20.0-51.0); MEAN CELL VOLUME 89 fl (80.0-100.0); MEAN CORPUSCULAR HGB CONC 28 g/dl (33.0-37.0); MEAN PLATELET VOLUME 11.4 fl (7.4-10.4); MONO # 0.4 K/mm3 (0.1-0.6); MONO % 6.8 % (1.7-9.3); PLATELET COUNT 177 K/mm3 (130-400); RED BLOOD COUNT 3.33 M/mm3 (4.10-5.30); REDCELL DISTRIBUTION WIDTH-CV 22.8 % (11.5-14.5)
[2021-11-15 06:51] LABS: HEMATOCRIT 29.7 % (37.0-47.0); HEMOGLOBIN 8.2 g/dl (12.5-16.0); MEAN CORPUSCULAR HEMOGLOBIN 25 pg (27-31)
[2021-11-15 06:59] LABS: CALCIUM 8.5 mg/dL (8.4-10.2); CREATININE, serum 1.3 mg/dL (0.57-1.11); POTASSIUM 3.7 mmol/L (3.5-4.5)
--- NOTE | 2021-11-15 10:40 | NUR ---
SW met with patient to complete intake. Patient provides that she lives alone in [place] and her DPOA-HC is her son Paolo Sierra [phone]. Patient provides that she does utilize a walker currently, but is independent with ADL's, PCP is Dr. Figueroa, and pharmacy is [facility]. Patient provides that her plan is to go home with the assistance of her son, but is unsure if she will be able to and she may be open to being placed and at local facility of choice which consists of [facility], [facility], and [facility] referrals sent to each facility. Patient had no further questions or concerns. SW will continue to follow. DC plan: home with the assistance of son, or placement
[2021-11-15 16:02] LABS: MUCOUS Present (NOT PRESENT); PH 5 (5-8); URINE APPEARANCE Clear (CLEAR/HAZY); URINE BACTERIA Rare /hpf (NONE SEEN); URINE BILIRUBIN Negative (NEGATIVE); URINE BLOOD 1+ (NEGATIVE); URINE COLOR Straw (YELLOW); URINE GLUCOSE Negative (NEGATIVE); URINE KETONE Negative (NEGATIVE); URINE LEUKOCYTE ESTERASE Negative (NEGATIVE); URINE NITRATE Negative (NEGATIVE); URINE PROTEIN(semi-quant) Negative (NEGATIVE); URINE RBC 0-2 /hpf (0-2); URINE UROBILINOGEN Negative (NEGATIVE); URINE WBC 0-2 /hpf (0-2)
[2021-11-15 16:10] LABS: COLLECTION METHOD CLEAN CATCH
--- NOTE | 2021-11-15 23:08 | NUR ---
Patient assessed around 2034. Alert and oriented, and able to make needs known. Denies pain and discomfort. peripheral INT to right wrist. Reports SOB with exertion. On oxygen at 3 L/min via NC. HRR. BSAx4. Purewick catheter in place for accurate output. Voices no questions, needs, or concerns at this time. In bed with call light within reach.
[2021-11-16 03:09] VITALS: BP 105/41; PULSE 57; TEMP 97.9
--- NOTE | 2021-11-16 05:17 | NUR ---
Has been resting in bed with call light within reach. Denies pain and discomfort. Purwick replaced and seems to be working well. Denies pain and discomfort. Voices no questions, needs, or concerns at this time. In bed with call light within reach. Bed alarm on.
[2021-11-16 06:39] LABS: BASO % 0.6 % (0.0-2.0); EOS # 0.1 K/mm3 (0.0-0.7); EOS % 2.1 % (0.0-4.0); GRAN # 5.3 K/mm3 (1.4-6.5); GRAN % 78.1 % (42.2-75.2); LYMPH # 0.8 K/mm3 (1.2-3.4); MEAN CELL VOLUME 87 fl (80.0-100.0); MEAN CORPUSCULAR HGB CONC 29 g/dl (33.0-37.0); MEAN PLATELET VOLUME 11.5 fl (7.4-10.4); MONO # 0.5 K/mm3 (0.1-0.6); MONO % 6.8 % (1.7-9.3); PLATELET COUNT 171 K/mm3 (130-400); RED BLOOD COUNT 3.19 M/mm3 (4.10-5.30); REDCELL DISTRIBUTION WIDTH-CV 22.6 % (11.5-14.5)
[2021-11-16 06:50] LABS: HEMATOCRIT 27.7 % (37.0-47.0); HEMOGLOBIN 7.9 g/dl (12.5-16.0); MEAN CORPUSCULAR HEMOGLOBIN 25 pg (27-31)
[2021-11-16 06:51] LABS: CALCIUM 8.6 mg/dL (8.4-10.2); CREATININE, serum 1.54 mg/dL (0.57-1.11); POTASSIUM 3.8 mmol/L (3.5-4.5)
[2021-11-16 07:58] VITALS: BP 110/75; PULSE 57; TEMP 98.3
--- NOTE | 2021-11-16 08:30 | NUR ---
Shift assessment complete. Pt resting in bed, A&Ox4. Heart RRR. Expiratory wheezes heard over right lung. 3+ pitting to BLE. Pt denies pain or SOA. Denies further needs. Call light in reach.
[2021-11-16 11:51] VITALS: BP 110/36; PULSE 56; TEMP 97.9
--- NOTE | 2021-11-16 14:41 | NUR ---
Manager Of Medical contacted Brigitte at [facility] who advised patient is from the [facility], where she was receiving rehab. Brigitte states they anticipate accepting patient at time of discharge. ELLIOT faxed clinical updates. ELLIOT checked in with patient who confirmed the plan will be to return to [facility] and remarked that it may be for intermediate project manager care. ELLIOT contacted patient's son, Paolo and left a message.
[2021-11-16 15:14] VITALS: BP 105/43; PULSE 56; TEMP 97.5
--- NOTE | 2021-11-16 16:33 | NUR ---
Senior Gamemaster spoke with Brigitte at [facility] who confirmed that they are planning to transition patient to assisted care as soon as an opening is available.
--- NOTE | 2021-11-16 16:39 | NUR ---
Supervisor Veneer spoke with patient's son, Paolo and confirmed that the discharge plan will be to return to [facility] and then transition to medical terminologist care.
[2021-11-16 19:41] VITALS: BP 104/37; PULSE 56; TEMP 97.6
--- NOTE | 2021-11-16 21:49 | NUR ---
Patient assessed around 2014. Alert and oriented, and able to make needs known. Denies pain and discomfort. Peripheral INT to right wrist. Denies SOB and dyspea. On oxygen at 4 L/min via NC. Telemetry in place. Offered to assist with repositioning, but patient declined. Reminded patient that she needs to reposition and move around or she will get bedsores. SCDs on. 2+ edema BLE. Purewick external female catheter in place with clear yellow urine. Voices no questions, needs, or concerns at this time. In bed with call light within reach.
[2021-11-16 23:40] VITALS: BP 104/38; PULSE 61; TEMP 97.6
[2021-11-17 00:25] LABS: CALCIUM 8.2 mg/dL (8.4-10.2); CREATININE, serum 1.48 mg/dL (0.57-1.11); MAGNESIUM 1.3 mg/dL (1.6-2.6); POTASSIUM 3.7 mmol/L (3.5-4.5)
[2021-11-17 04:10] VITALS: BP 104/39; PULSE 57; TEMP 97.9
--- NOTE | 2021-11-17 05:53 | NUR ---
Patient has denied having pain and discomfort this shift. During the night, telemetry called and stated that she was having multifocal PVCs. Updated GRUPO Coleman. EKG and labs ordered. Potassium and Magnesium replaced during the night. Did allow minimum repositioning during the night. Encouraged to turn off of bottom and onto side for a while, but would only shift weight on back. Education provided on importance of repositioning. Patient voices no questions, needs, or concerns at this time. In bed with call light within reach.
--- NOTE | 2021-11-17 06:45 | NUR ---
bedside shift report received from OSCAR Roberts
[2021-11-17 07:19] LABS: BASO # 0.1 K/mm3 (0.0-0.2); BASO % 0.7 % (0.0-2.0); EOS # 0.1 K/mm3 (0.0-0.7); EOS % 2.1 % (0.0-4.0); GRAN # 5.3 K/mm3 (1.4-6.5); GRAN % 78.3 % (42.2-75.2); LYMPH # 0.8 K/mm3 (1.2-3.4); LYMPH % 12.1 % (20.0-51.0); MEAN CELL VOLUME 87 fl (80.0-100.0); MEAN CORPUSCULAR HGB CONC 28 g/dl (33.0-37.0); MEAN PLATELET VOLUME 11.5 fl (7.4-10.4); MONO # 0.4 K/mm3 (0.1-0.6); MONO % 6.5 % (1.7-9.3); PLATELET COUNT 155 K/mm3 (130-400); RED BLOOD COUNT 3.31 M/mm3 (4.10-5.30); REDCELL DISTRIBUTION WIDTH-CV 22.5 % (11.5-14.5)
[2021-11-17 07:21] LABS: HEMATOCRIT 28.9 % (37.0-47.0); HEMOGLOBIN 8.2 g/dl (12.5-16.0); MEAN CORPUSCULAR HEMOGLOBIN 25 pg (27-31)
[2021-11-17 07:24] LABS: CALCIUM 8.4 mg/dL (8.4-10.2); CREATININE, serum 1.46 mg/dL (0.57-1.11)
[2021-11-17 07:35] VITALS: BP 110/47; PULSE 57; TEMP 97.6
--- NOTE | 2021-11-17 07:55 | NUR ---
resting in bed, full assessment completed, see interventions for further info, offered breakfast and she declines at this time
--- NOTE | 2021-11-17 10:15 | NUR ---
assisted onto bedpan and had large semiformed bowel movement, then physical therapy in to work with patient, assisted up and out of bed and into recliner, she was able to do this with minimal assist,
[2021-11-17 11:20] VITALS: BP 108/79; PULSE 74; TEMP 98.3
--- NOTE | 2021-11-17 11:35 | NUR ---
remains up in chair
--- NOTE | 2021-11-17 11:59 | NUR ---
First visit from the wheel adjuster. No needs right now.
--- NOTE | 2021-11-17 13:07 | NUR ---
had a few peaches for lunch and then had some nausea and dry heaves, refused remainder of lunch, assisted back to bed, had been incontinent of small amount of urine, once back in bed placed purewick catheter,
--- NOTE | 2021-11-17 13:40 | NUR ---
Asset Protection Manager faxed clinical updates to Brigitte at [facility].
--- NOTE | 2021-11-17 14:35 | NUR ---
is awake now sitting up in bed and eating lunch with assistance of SIDE SEAM TENDER
--- NOTE | 2021-11-17 15:00 | NUR ---
in bed and appears to be sleeping, resp quiet and easy
[2021-11-17 15:48] VITALS: BP 114/41; PULSE 57; TEMP 97.9
--- NOTE | 2021-11-17 16:29 | NUR ---
continues to appear to be sleeping
--- NOTE | 2021-11-17 16:40 | NUR ---
awakened for evening meds, denies needs and requesting lights be turned off
--- NOTE | 2021-11-17 18:14 | NUR ---
continues to sleep, declines supper
--- NOTE | 2021-11-17 18:56 | NUR ---
bedside shift report given to OSCAR Young
[2021-11-17 20:28] VITALS: BP 101/49; PULSE 57; TEMP 98.3
--- NOTE | 2021-11-17 20:45 | NUR ---
Pt doing well during assessment with no pain complaints. Pt is more awake now than with shift change. She only ate a small amount of her dinner, stated she wasn't hungry. Discussed with pt about not being able to eat or drink anything after midnight, pt stated she understood. Purwick in place. No needs verbalized, call light within reach
[2021-11-18] VITALS (7 sets, daily range): BP systolic 100–111; BP diastolic 40–50; PULSE 56–86; TEMP 97.2–98.4
--- NOTE | 2021-11-18 06:00 | NUR ---
Pt slept most of the night. Pt did continue to use the purwick for voiding. No pain complaints. Pt is aware that she is to not have anything to eat or drink until after lexiscan.
--- NOTE | 2021-11-18 08:37 | NUR ---
Pt assessment complete. Pt is laying in bed upon entry, she is alert and oriented. She denies any pain. No SOB at this time, has been wearing 3L o2 via NC. Purewick in place. POC discussed with patient who will have a lexiscan this am. No further needs. Call light within reach.
--- NOTE | 2021-11-18 08:43 | NUR ---
Pt down to lexiscan at this time.
--- NOTE | 2021-11-18 14:25 | NUR ---
Pt refuses to get out of bed into recliner. SCD's placed to BLE.
--- NOTE | 2021-11-18 15:17 | NUR ---
Cigarette Filter Inspector faxed clinical updates to [facility].
--- NOTE | 2021-11-18 17:25 | NUR ---
Pt rested in bed in the dark most of the day. Did not want to get out of bed into the recliner. Purewick in place. POC discussed with patient who will have lexiscan tomorrow. No needs at this time. Call light within reach.
--- NOTE | 2021-11-18 20:00 | NUR ---
Bedside shift report received, assumed care for screed operator. Assessment complete. A&Ox4. Denies pain/nausea. Short of breath with activity. Noted to have insp wheezes to left lobes/diminished right lobes. Tele reporting A Fib. O2@2L/NC. INT to left wrist flushes without difficulty. Purewick in place with clear yellow urine to cannister. SCDs bilat. Plan of care discussed for this shift to include meds/repositioning/calling for questions/concerns/NPO@0000. Verbalizes understanding/denies needs. Call light in reach. Will monitor.
[2021-11-19] VITALS (7 sets, daily range): BP systolic 95–121; BP diastolic 38–50; PULSE 59–77; TEMP 97.2–98.3
--- NOTE | 2021-11-19 00:24 | NUR ---
Resting eyes closed. NO s/s of pain noted. Will monitor.
--- NOTE | 2021-11-19 05:53 | NUR ---
Patient had an uneventful night. Adequate output. Has remained NPO for Leslie scan today. Denied pain/nausea/shortness of breath. VS remained stable. Refused repositioning all night. Denies current needs. Call light in reach. Will monitor.
[2021-11-19 06:42] LABS: BASO % 0.4 % (0.0-2.0); EOS # 0.1 K/mm3 (0.0-0.7); EOS % 1.5 % (0.0-4.0); GRAN # 6.8 K/mm3 (1.4-6.5); GRAN % 85.2 % (42.2-75.2); LYMPH # 0.6 K/mm3 (1.2-3.4); MEAN CELL VOLUME 86 fl (80.0-100.0); MEAN CORPUSCULAR HGB CONC 29 g/dl (33.0-37.0); MEAN PLATELET VOLUME 11.2 fl (7.4-10.4); MONO # 0.4 K/mm3 (0.1-0.6); MONO % 5.5 % (1.7-9.3); PLATELET COUNT 145 K/mm3 (130-400); REDCELL DISTRIBUTION WIDTH-CV 21.8 % (11.5-14.5)
[2021-11-19 06:47] LABS: CALCIUM 8.5 mg/dL (8.4-10.2); CREATININE, serum 1.2 mg/dL (0.57-1.11); POTASSIUM 3.9 mmol/L (3.5-4.5)
--- NOTE | 2021-11-19 06:56 | NUR ---
appears to be sleeping, bedside shift report received from OSCAR Paredes
[2021-11-19 07:13] LABS: HEMATOCRIT 27.5 % (37.0-47.0); MEAN CORPUSCULAR HEMOGLOBIN 25 pg (27-31)
--- NOTE | 2021-11-19 08:40 | NUR ---
appears to continue to sleep, resp quiet and easy
--- NOTE | 2021-11-19 09:20 | NUR ---
cardiopulmonary here to take patient for court, Dr Smith also in to see patient and wants to talk with primary Dr before having her go for court therlivan in to complete breathing treatment
--- NOTE | 2021-11-19 09:40 | NUR ---
am hygiene completed, has redness to cocyx and buttocks and a 1cm "cracked" area between buttocks, foam dressing placed, new purewick placed by SYNTHETIC CLOTH BINDING CUTTER, full assessment completed, see interventions for further info, lexiscan was cancelled and new orders placed
--- NOTE | 2021-11-19 09:58 | NUR ---
ELLIOT student faxed clinical updates to [facility]. ELLIOT collaborated with RN who advised patient is not ready for discharge today. Discharge plan: [facility]
--- NOTE | 2021-11-19 10:45 | NUR ---
physical therapy in to work with patient, assiste up to side of bed and ambulated around the bed and over to recliner to sit up for a while, am meds given, denies needs, soup ordered
--- NOTE | 2021-11-19 12:00 | NUR ---
remains up in chair, Dr Cunha and care team in to see patient
--- NOTE | 2021-11-19 12:02 | NUR ---
Spool Salvager spoke with patient's daughter in law and provided update that patient is not ready for discharge back to [facility] today.
--- NOTE | 2021-11-19 13:18 | NUR ---
back to bed with assistance of DIRECTOR OF MANUFACTURING OPERATIONS and physical therapy, resting now before going for VQ scan
--- NOTE | 2021-11-19 13:44 | NUR ---
assisted onto stretcher and to radiology for scan
--- NOTE | 2021-11-19 14:45 | NUR ---
returned to room per cart and movd over to bed per slide board, is pleasant and cooperative and denies needs
--- NOTE | 2021-11-19 15:20 | NUR ---
appears to be sleeping, in bed with lights off, eyes closed, resp quiet and easy
--- NOTE | 2021-11-19 16:50 | NUR ---
sitting up in bed ready for supper, franck needs
--- NOTE | 2021-11-19 17:46 | NUR ---
resting in bed, visiting with her son
--- NOTE | 2021-11-19 18:43 | NUR ---
bedside shift report given to OSCAR Paredes
--- NOTE | 2021-11-19 19:30 | NUR ---
Bedside shift report received, assumed care for retail shift leader. Assessment complete. A&Ox4-forgetful. Denies pain/nausea. Short of breath with activity. VS stable. O2@2L/NC. Attempt made for signing of consent form for heart cath but patient states she doesnt know anything about it. States she cant remember if anyone talked to her about it and isnt comfortable signing until she knows what she is having done. Noted to have +2 edema to bilat lower extremitites. Denies any current questions/concerns. Call light in reach. Will monitor.
[2021-11-20] VITALS (15 sets, daily range): BP systolic 93–118; BP diastolic 38–66; PULSE 54–83; TEMP 97.3–99
--- NOTE | 2021-11-20 01:25 | NUR ---
Resting in bed eyes closed. No s/s of pain or discomfort noted.
[2021-11-20 05:56] LABS: MEAN CELL VOLUME 85 fl (80.0-100.0); MEAN CORPUSCULAR HGB CONC 30 g/dl (33.0-37.0); MEAN PLATELET VOLUME 11.4 fl (7.4-10.4); PLATELET COUNT 128 K/mm3 (130-400); RED BLOOD COUNT 3.23 M/mm3 (4.10-5.30); REDCELL DISTRIBUTION WIDTH-CV 21.7 % (11.5-14.5)
[2021-11-20 06:11] LABS: HEMATOCRIT 27.4 % (37.0-47.0); HEMOGLOBIN 8.1 g/dl (12.5-16.0); MEAN CORPUSCULAR HEMOGLOBIN 25 pg (27-31)
--- NOTE | 2021-11-20 06:15 | NUR ---
Rested well this shift. Denied pain/nausea. Short of breath with activity. Had 2 large loose BMs. Was incontinent of urine and purewick was not functioning for accurate output but was a total bed change. Attempt made to get consent signed for heart cath but patient denied needing/knowing about it so consent is not signed. Refused repositioning. Denies current needs. Call light in reach. Will monitor.
[2021-11-20 06:30] LABS: CALCIUM 8.5 mg/dL (8.4-10.2); CREATININE, serum 1.13 mg/dL (0.57-1.11); POTASSIUM 3.9 mmol/L (3.5-4.5)
[2021-11-20 07:14] LABS: BASO % 0.5 % (0.0-2.0); EOS # 0.2 K/mm3 (0.0-0.7); EOS % 2.3 % (0.0-4.0); GRAN # 6.1 K/mm3 (1.4-6.5); GRAN % 83.3 % (42.2-75.2); LYMPH # 0.5 K/mm3 (1.2-3.4); LYMPH % 7.3 % (20.0-51.0); MONO # 0.5 K/mm3 (0.1-0.6); MONO % 6.1 % (1.7-9.3)
--- NOTE | 2021-11-20 12:19 | NUR ---
SEE MERGE FOR ALL MEDICATION ADMINISTRATION TIMES/DOSAGES AND INTRA/POST SEDATION ASSESSMENTS.
--- NOTE | 2021-11-20 13:18 | NUR ---
The clinical team notified SW that they will be ready to discharge the patient tomorrow, 11/21. ELLIOT notified and faxed updates to Brigitte at [facility]. Brigitte reports that they have a bed for the patient. SW attempted to contact and update the patient's son, Paolo. SW left him a voicemail. Paolo then returned ELLIOT's phone call and left this SW a voicemail. Paolo reports that he is in class right now and asked that SW contact and update his . ELLIOT then contacted and updated Paolo's , Rafia. Rafia in agreement to the plan. SW read the IM form outloud to Rafia. Rafia verbalized understanding and gave SW approval to sign the form on her behalf. No additional needs at this time. *Discharge plan: [facility] on Tuesday*
[2021-11-21 00:16] VITALS: BP 104/46; PULSE 66; TEMP 97.2
--- NOTE | 2021-11-21 02:11 | NUR ---
PATIENT DOING WELL TONIGHT. ALERT AND ORIENTED. LAST 2 MLS OF AIR RELEASED FROM RADIAL BAND. BAND WILL BE REMOVED IN AM. R GROIN SITE CDI WITH GAUZE AND TEGADERM AND IS SOFT TO PALPATION. PUREWICK IN PLACE. 2 L O2 VIA NC INFUSING. INT TO L HAND PATENT AND FLUSHES WITHOUT ISSUE. PER REPORT STAGE 2 PRESSURE SORE ON COCCYX, WILL ATTEMPT TO APPLY MEPILEX IN AM. PATIENT RESTING IN BED, CALL LIGHT WITHIN REACH.
[2021-11-21 04:47] VITALS: BP 99/49; PULSE 74; TEMP 97.9
[2021-11-21] MEDS ORDERED: NITRO-DUR0.4 MG/PAT TD (07:23)
[2021-11-21] MEDS ORDERED: ASPIRIN E.C. 8181 MG PO (07:24)
[2021-11-21] MEDS ORDERED: COREG 6.256.25 MG/TA PO (07:24)
[2021-11-21] MEDS ORDERED: LASIX 40MG TABL40 MG PO (07:24)
[2021-11-21 07:33] LABS: CALCIUM 8.6 mg/dL (8.4-10.2); CREATININE, serum 1.03 mg/dL (0.57-1.11)
[2021-11-21 07:35] LABS: BASO % 0.6 % (0.0-2.0); EOS # 0.2 K/mm3 (0.0-0.7); EOS % 2.2 % (0.0-4.0); GRAN # 5.5 K/mm3 (1.4-6.5); GRAN % 81.5 % (42.2-75.2); LYMPH # 0.6 K/mm3 (1.2-3.4); LYMPH % 8.8 % (20.0-51.0); MEAN CELL VOLUME 85 fl (80.0-100.0); MEAN CORPUSCULAR HGB CONC 29 g/dl (33.0-37.0); MEAN PLATELET VOLUME 11.6 fl (7.4-10.4); MONO # 0.4 K/mm3 (0.1-0.6); MONO % 6.6 % (1.7-9.3); PLATELET COUNT 143 K/mm3 (130-400); RED BLOOD COUNT 3.15 M/mm3 (4.10-5.30); REDCELL DISTRIBUTION WIDTH-CV 21.7 % (11.5-14.5)
[2021-11-21 07:36] LABS: HEMATOCRIT 26.7 % (37.0-47.0); HEMOGLOBIN 7.8 g/dl (12.5-16.0); MEAN CORPUSCULAR HEMOGLOBIN 25 pg (27-31)
--- NOTE | 2021-11-21 07:37 | NUR ---
critical H&H called to [facility]
[2021-11-21 09:03] VITALS: BP 106/46; PULSE 66; TEMP 98.1
[2021-11-21] MEDS ORDERED: LEVEMIR100 U/ML SQ (09:27)
[2021-11-21] MEDS ORDERED: NOVOLOG 100U100 U/M1 SQ (09:29)
--- NOTE | 2021-11-21 10:01 | NUR ---
Hospitalist rounded. Spoke with social work about discharge planning. crystal growing technician called requesting an EKG, Chayo Perez ordered, Rt notified. Patient positioned in bed to eat. Will monitor.
--- NOTE | 2021-11-21 10:06 | NUR ---
ELLIOT informed patient would be discharging on this day to [facility]. ELLIOT contacted [facility] staff to confirm information. DC documentation sent, spoke with patient and patient informed of next steps dcing to [facility]. Nurse aware of transfer to [facility] as well. Nothing further.
[2021-11-21 11:09] VITALS: BP 106/46; PULSE 66; TEMP 98.1
--- NOTE | 2021-11-21 12:12 | NUR ---
Patient provided with hygiene prior to discharge. Patient was incontinenet of urine & stool. barrier bream applied to coccyx. warm wipes provided to skin. dentures cares given. Report called to nurse & questions answered. fernando jacques reviewed ekg prior to discharge. discharge cirteria met
== END 2021-11-21 12:16 | DRG 286 ==
LOC: COL.ER 08:44 → SURG 10:13
PROVIDERS: Personal Emergency Response Attendant; Physician Assistant; Student in an Organized Health Care Education/Training Program; ADMIT Student in an Organized Health Care Education/Training Program
PROC: 4A023N6 Measurement of Cardiac Sampling and Pressure, Right Heart, Percutaneous Approach (ICD-10-PCS; principal; 2021-11-20)
PROC: B2111ZZ Fluoroscopy of Multiple Coronary Arteries using Low Osmolar Contrast (ICD-10-PCS; 2021-11-20)
PROC: 5A0935A Assistance with Respiratory Ventilation, Less than 24 Consecutive Hours, High Flow/Velocity Cannula (ICD-10-PCS; 2021-11-21)
DX: I13.0 Hypertensive heart and chronic kidney disease with heart failure and stage 1 through stage 4 chronic kidney disease, or unspecified chronic kidney disease (principal); I50.31 Acute diastolic (congestive) heart failure; J96.21 Acute and chronic respiratory failure with hypoxia; I24.8 Other forms of acute ischemic heart disease; K57.32 Diverticulitis of large intestine without perforation or abscess without bleeding; J44.9 Chronic obstructive pulmonary disease, unspecified; I48.91 Unspecified atrial fibrillation; E11.22 Type 2 diabetes mellitus with diabetic chronic kidney disease; K21.9 Gastro-esophageal reflux disease without esophagitis; N18.9 Chronic kidney disease, unspecified; I27.20 Pulmonary hypertension, unspecified; I25.10 Atherosclerotic heart disease of native coronary artery without angina pectoris; K64.8 Other hemorrhoids; I08.1 Rheumatic disorders of both mitral and tricuspid valves; I45.10 Unspecified right bundle-branch block; I49.3 Ventricular premature depolarization; Z87.891 Personal history of nicotine dependence; Z79.4 Long term (current) use of insulin; Z20.822 Contact with and (suspected) exposure to COVID-19; Z23 Encounter for immunization
CPT/HCPCS: OP; 99223-AI; 99233-AI; 99239; A9500; A9540; A9567; C1894; J0456; J0696; J1644; J1815; J1940; J3010; J3475; J7050; Q9967